=== PATIENT | male | born 1985 | race Caucasian/White ===

== ENCOUNTER 2017-07-15 03:36 | Emergency (ER) | payer OTHER ==
[~2017-07-15] VITALS: Ht 175.3 cm; Wt 112.0 kg
[2017-07-15 04:00] VITALS: BP 138/88
[2017-07-15] MEDS ORDERED: TETRACAINE 0.5% OPHTH DROPS 4ML LEFTEYE ONE (06:45)
[2017-07-15] MEDS ORDERED: FLUORESCEIN SODIUM 1MG/STRIP LEFTEYE ONE (06:45)
[2017-07-15] MEDS ORDERED: TETRACAINE 0.5% OPHTH DROPS 4ML ONE (06:51)
[2017-07-15] MEDS ORDERED: FLUORESCEIN SODIUM 1MG/STRIP ONE (06:51)
[2017-07-15] MEDS ORDERED: FAMOTIDINE 20MG TABLET PO ONE (07:15)
[2017-07-15] MEDS ORDERED: DEXAMETHASONE 10 MG/ML VIAL IV SCH (07:15)
== END 2017-07-15 07:48 | disposition home or self-care (01) ==
LOC: ER 03:36
DX: T78.40XA Allergy, unspecified, initial encounter (principal); F17.200 Nicotine dependence, unspecified, uncomplicated; X58.XXXA Exposure to other specified factors, initial encounter
CPT/HCPCS: 96374; 99284; J1100; Z7610